=== PATIENT | female | born 1965 | race Caucasian/White ===

== ENCOUNTER 2017-03-26 03:11 | Inpatient (IN) | payer OTHER ==
--- NOTE | 2017-03-26 03:25 | PDOC ---
History of Present Illness - General History Source: Patient, Family Exam Limitations: No Limitations - History of Present Illness Initial Comments: 03/26/17 03:35 51 y/o F with a PMHx of HTN, gastric bypass presents to the ED with epigastric pain. Patient reports associated nausea, vomiting. She ate out at a restaurant tonight and subsequently experienced symptoms. Denies fever, chills, diarrhea. Denies chest pain, SOB. <Fatmata Pena - Last Filed: 03/26/17 03:35> <Floyd Real - Last Filed: 03/26/17 07:15> - General Stated Complaint: VOMITING, ABDOMINAL PAIN Time Seen by Provider: 03/26/17 03:24 Past History <Fatmata Pena - Last Filed: 03/26/17 03:35> <Floyd Real - Last Filed: 03/26/17 07:15> - Past Medical History Allergies/Adverse Reactions: Allergies Allergy/AdvReac Type Severity Reaction Status Date / Time No Known Allergies Allergy Verified 03/26/17 04:22 Home Medications: Ambulatory Orders Valsartan 40 mg PO DAILY 03/26/17 Review of Systems - Review of Systems Comments:: 03/26/17 03:36 GENERAL/CONSTITUTIONAL: No fever or chills. No weakness. HEAD, EYES, EARS, NOSE AND THROAT: No change in vision. No ear pain or discharge. No sore throat. CARDIOVASCULAR: No chest pain or shortness of breath. RESPIRATORY: No cough, wheezing, or hemoptysis. GASTROINTESTINAL: (+) epigastric tenderness, nausea, vomiting. No diarrhea or constipation. GENITOURINARY: No dysuria, frequency, or change in urination. MUSCULOSKELETAL: No joint or muscle swelling or pain. No neck or back pain. SKIN: No rash NEUROLOGIC: No headache, vertigo, loss of consciousness, or change in strength/ sensation. ENDOCRINE: No increased thirst. No abnormal weight change. HEMATOLOGIC/LYMPHATIC: No anemia, easy bleeding, or history of blood clots. ALLERGIC/IMMUNOLOGIC: No hives or skin allergy. <Fatmata Pena - Last Filed: 03/26/17 03:35> *Physical Exam - Physical Exam Comments: 03/26/17 03:37 GENERAL: Awake, alert, and fully oriented, in no acute distress HEAD: No signs of trauma EYES: PERRLA, EOMI, sclera anicteric, conjunctiva clear ENT: Auricles normal inspection, hearing grossly normal, nares patent, oropharynx clear without exudates. Moist mucosa NECK: Normal ROM, supple, no lymphadenopathy, JVD, or masses LUNGS: Breath sounds equal, clear to auscultation bilaterally. No wheezes, and no crackles HEART: Regular rate and rhythm, normal S1 and S2, no murmurs, rubs or gallops ABDOMEN: Epigastric tenderness. Soft, normoactive bowel sounds. No guarding, no rebound. No masses EXTREMITIES: Normal range of motion, no edema. No clubbing or cyanosis. No cords, erythema, or tenderness NEUROLOGICAL: Cranial nerves II through XII grossly intact. Normal speech, normal gait SKIN: Warm, Dry, normal turgor, no rashes or lesions noted. <Fatmata Pena - Last Filed: 03/26/17 03:35> ED Treatment Course - LABORATORY CBC & Chemistry Diagram: 03/26/17 04:47 03/26/17 04:47 <Floyd Real - Last Filed: 03/26/17 07:15> *DC/Admit/Observation/Transfer - Attestations Scribe Attestion: 03/26/17 03:37 Documentation prepared by Fatmata Pena, acting as associate medical director for lFoyd Real DO. <Fatmata Pena - Last Filed: 03/26/17 03:35> - Attestations Physician Attestion: 03/26/17 03:24 I, Dr. Floyd Real, attest that this document has been prepared under my direction and personally reviewed by me in its entirety. I further attest, that it accurately reflects all work, treatment, procedures and medical decision -making performed by me. <Floyd Real - Last Filed: 03/26/17 07:15> Diagnosis at time of Disposition: Pancreatitis Qualifiers: Chronicity: acute Pancreatitis type: other Acute pancreatitis complication: unspecified Qualified Code(s): K85.80 - Other acute pancreatitis without necrosis or infection; K85.80 - Other acute pancreatitis without necrosis or infection
[2017-03-26] MEDS ORDERED: SODIUM CHLORIDE 1,000 ML IV STA (03:34)
[2017-03-26] MEDS ORDERED: ONDANSETRON 4 MG/2 ML VIAL IVPUSH ONE (03:34)
[2017-03-26] MEDS ORDERED: HYDROmorphone HCL CARPU-JECT 1 MG/1 ML DISP.SYRIN IVPUSH ONE (03:34)
[2017-03-26 05:01] LABS: BASOPHIL 0.5 % (0-2.0); EOSINOPHIL 0.2 % (0-4.5); MCH 24.2 pg (25.7-33.7); MEAN CELL VOLUME 75.4 fl (80-96); MEAN PLT VOLUME 7.3 fl (7.5-11.1); NEUTROPHILS 87.8 % (42.8-82.8); PLATELET COUNT 352 K/MM3 (134-434); RDW 18.8 % (11.6-15.6); WHITE BLOOD COUNT 15.6 K/mm3 (4.0-10.0)
[2017-03-26 05:09] LABS: INR 1.04 (0.82-1.09); PROTHROMBIN TIME (PATIENT) 11.8 SEC (9.98-11.88)
[2017-03-26 05:20] LABS: ALBUMIN 3.6 g/dl (3.4-5.0); ANION GAP 7 (8-16); BILIRUBIN,TOTAL 0.9 mg/dL (0.2-1.0); CALCIUM 8.7 mg/dL (8.5-10.1); CO2 27 mmol/L (21-32); CREATININE 0.9 mg/dL (0.55-1.02); GLUCOSE,RANDOM 163 mg/dL (74-106); SGOT/AST 225 U/L (15-37); SGPT/ALT 77 U/L (12-78); TOT PROT 7.4 g/dl (6.4-8.2)
[2017-03-26 05:23] LABS: ALK PHOS 190 U/L (45-117); CPK 110 IU/L (26-192); TROPONIN I < 0.02 ng/ml (0.00-0.05)
[2017-03-26] MEDS ORDERED: ACETAMINOPHEN 1000 MG/100 ML VIAL (NON FORMULARY) IVPB ONE (06:38)
[2017-03-26] MEDS ORDERED: ACETAMINOPHEN INJECTION 100 ML IVPB ONE (07:01)
[2017-03-26] MEDS ORDERED: PIPERACIL/TAZOB 3.375 GM 3.375 GM/50 ML PREMIX IVPB ONE (07:25)
[2017-03-26] MEDS ORDERED: METRONIDAZOLE 500 MG PREMIXED 100 ML IVPB ONE ×2 (07:25→08:01)
[2017-03-26 08:01] LABS: URINE APPEARANCE CLEAR; URINE BILIRUBIN NEGATIVE (NEGATIVE); URINE BLOOD NEGATIVE (NEGATIVE); URINE COLOR YELLOW; URINE GLUCOSE (UA) 1+ (NEGATIVE); URINE KETONE NEGATIVE (NEGATIVE); URINE NITRITE NEGATIVE (NEGATIVE); URINE PROTEIN NEGATIVE (NEGATIVE)
[2017-03-26] MEDS ORDERED: PIPERACILLIN/TAZOB 3.375 GM 50 ML IVPB ONE (08:01)
[2017-03-26] MEDS ORDERED: morphine CARPU-JECT 2 MG/1 ML DISP.SYRIN IVPUSH PRN (09:42)
[2017-03-26] MEDS ORDERED: SODIUM CHLORIDE 1,000 ML IV SCH (09:45)
--- NOTE | 2017-03-26 10:14 | PDOC ---
*Physical Exam - Vital Signs Last Vital Signs Temp Pulse Resp BP Pulse Ox 100.8 F H 95 H 20 132/75 98 03/26/17 06:36 03/26/17 07:17 03/26/17 07:17 03/26/17 07:17 03/26/17 07:17 ED Treatment Course - LABORATORY CBC & Chemistry Diagram: 03/26/17 04:47 03/26/17 04:47 - ADDITIONAL ORDERS Additional order review: Laboratory Results 03/26/17 03/26/17 03/26/17 07:51 04:47 04:47 PT with INR 11.80 INR 1.04 Sodium 141 Potassium 4.5 Chloride 107 Carbon Dioxide 27 Anion Gap 7 L BUN 14 Creatinine 0.9 Creat Clearance w eGFR > 60 Random Glucose 163 H Calcium 8.7 Total Bilirubin 0.9 AST 225 H ALT 77 Alkaline Phosphatase 190 H Creatine Kinase 110 Troponin I < 0.02 Total Protein 7.4 Albumin 3.6 Lipase 807 H Urine Color Yellow Urine Appearance Clear Urine pH 6.0 Urine Protein Negative Urine Glucose (UA) 1+ H Urine Ketones Negative Urine Blood Negative Urine Nitrite Negative Urine Bilirubin Negative Urine Urobilinogen 2.0 H 03/26/17 04:47 RBC 4.86 MCV 75.4 L MCHC 32.0 RDW 18.8 H MPV 7.3 L Neutrophils % 87.8 H Lymphocytes % 3.5 L Monocytes % 8.0 Eosinophils % 0.2 Basophils % 0.5 - RADIOLOGY Radiology Studies Ordered: Category Date Time Status ABDOMEN US -LIMITED [US] Stat Ultrasound 03/26/17 07:44 Completed - Medications Given in the ED: ED Medications Discontinued Medications Generic Name Dose Route Start Last Admin Trade Name Minerva PRN Reason Stop Dose Admin Acetaminophen 1,000 mg 03/26/17 06:38 03/26/17 07:04 Ofirmev Injection - IVPB 03/26/17 06:39 1,000 mg ONCE ONE Administration Hydromorphone HCl 1 mg 03/26/17 03:34 03/26/17 04:14 Dilaudid Injection - IVPUSH 03/26/17 03:35 1 mg ONCE ONE Administration Sodium Chloride 1,000 mls @ 1,000 mls/hr 03/26/17 03:34 03/26/17 04:14 Normal Saline - IV 03/26/17 04:33 1,000 mls/hr ASDIR STA Administration Metronidazole 100 mls @ 100 mls/hr 03/26/17 07:25 03/26/17 08:25 Flagyl 500mg Premixed Ivpb - IVPB 03/26/17 08:24 100 mls/hr ONCE ONE Administration Ondansetron HCl 4 mg 03/26/17 03:34 03/26/17 04:14 Zofran Injection IVPUSH 03/26/17 03:35 4 mg ONCE ONE Administration Piperacillin/Tazobactam/Dextrose 3.375 gm 03/26/17 07:25 03/26/17 09:25 Zosyn 3.375gm Ivpb (Premix) IVPB 03/26/17 07:26 3.375 gm ONCE ONE Administration Medical Decision Making - Medical Decision Making 03/26/17 10:04 51 F with acute pancreatitis. CTAP with no acute pathology. RUQ US shows no evidence of cholecystitis, with noted small cholesterol granules (less likely stones). Gallstone pancreatitis is unlikely as pt with no elevation in bilis, but will continue to trend bilis along with lipase. Pt with fever but no biliary dilation, no definite stones on US to suggest cholangitis. Pt was empirically covered with flagyl and zosyn. Will need GI consult for complete evaluation for potential cholangitis. - Admit to hospitalist for evaluation and management of pancreatitis as well as GI consultation Case discussed in detail with admitting physician including history, physical exam and ancillary studies. Admitting physician has assumed care for the patient and will follow all pending diagnostics and complete the evaluation and treatment. *DC/Admit/Observation/Transfer Diagnosis at time of Disposition: Pancreatitis Qualifiers: Chronicity: acute Pancreatitis type: other Acute pancreatitis complication: unspecified Qualified Code(s): K85.80 - Other acute pancreatitis without necrosis or infection - Discharge Dispostion Admit: Yes - Referrals - Patient Instructions - Post Discharge Activity - Attestations Physician Attestion: 03/26/17 10:14 I, Dr. Shiva Payan MD, attest that this document has been prepared under my direction and personally reviewed by me in its entirety. I further attest, that it accurately reflects all work, treatment, procedures and medical decision -making performed by me.
[2017-03-26 11:40] LABS: URINE LEUK ESTERASE Negative (NEGATIVE)
--- NOTE | 2017-03-26 12:07 | HP ---
CHIEF COMPLAINT:abdominal pain PCP: HISTORY OF PRESENT ILLNESS: 51 yo F with PMhx of HTN and s/p gastric bypass presents with few hour history of abdominal pain. She states the pain started last night after eating chicken. She describes constant non-radiating 10/10 epigastric pain. No alleviating factors but aggravated by food. She vomited non-bloody, non billous vomit x1. No similar pain in past. Denies CP,BOOGIE, SOB, palpitations, fevers, or chills. ER course was notable for: (1)WBC- 15.1, tachycardic 95 and fever 100.8= sirs (2)Given zosyn and metronidazole x1 (3)Gallbladder US shows small stones. Recent Travel: Denies PAST MEDICAL HISTORY: HTN PAST SURGICAL HISTORY: gastric bypass 2012 , and x3 Social History: Smoking:Markka daily Alcohol:2-3 drinks 5 days/week Drugs: denies Family History: Allergies No Known Allergies Allergy (Verified 03/26/17 04:22) HOME MEDICATIONS: Home Medications Medication Instructions Recorded Valsartan 40 mg PO DAILY 03/26/17 REVIEW OF SYSTEMS CONSTITUTIONAL: Absent: fever, chills, diaphoresis, generalized weakness, malaise, loss of appetite, weight change HEENT: Absent: rhinorrhea, nasal congestion, throat pain, throat swelling, difficulty swallowing, mouth swelling, ear pain, eye pain, visual changes CARDIOVASCULAR: Absent: chest pain, syncope, palpitations, irregular heart rate, lightheadedness , peripheral edema RESPIRATORY: Absent: cough, shortness of breath, dyspnea with exertion, orthopnea, wheezing, stridor, hemoptysis GASTROINTESTINAL:abdominal pain, abdominal distension, nausea, vomiting Absent: , diarrhea, constipation, melena, hematochezia GENITOURINARY: Absent: dysuria, frequency, urgency, hesitancy, hematuria, flank pain, genital pain MUSCULOSKELETAL: Absent: myalgia, arthralgia, joint swelling, back pain, neck pain SKIN: Absent: rash, itching, pallor HEMATOLOGIC/IMMUNOLOGIC: Absent: easy bleeding, easy bruising, lymphadenopathy, frequent infections ENDOCRINE: Absent: unexplained weight gain, unexplained weight loss, heat intolerance, cold intolerance NEUROLOGIC: Absent: headache, focal weakness or paresthesias, dizziness, unsteady gait, seizure, mental status changes, bladder or bowel incontinence PSYCHIATRIC: Absent: anxiety, depression, suicidal or homicidal ideation, hallucinations. PHYSICAL EXAMINATION Vital Signs - 24 hr 03/26/17 11:38 Temperature 98.3 F Pulse Rate [ 79 Right Apical] Blood Pressure 119/56 [Right Arm] O2 Sat by Pulse 95 Oximetry (%) GENERAL: AAOx3 , mild distress HEAD: NC/AT EYES: PERRLA, EOMI, sclera anicteric, conjunctiva clear. No lid lag. EARS, NOSE, THROAT: Moist mucous membranes. NECK:supple without lymphadenopathy, JVD, or masses. LUNGS: CTAB. No wheezes, and no crackles. No accessory muscle use. HEART: RRR, normal S1 and S2 , no M/G/R ABDOMEN: Soft, epigastric tenderness, negative szymanski sign , not distended, normoactive bowel sounds, voluntary guarding, no rebound, no masses. MUSCULOSKELETAL: Normal range of motion at all joints. No bony deformities or tenderness. No CVA tenderness. UPPER EXTREMITIES: 2+ pulses, warm, well-perfused. No cyanosis. No clubbing. No peripheral edema. LOWER EXTREMITIES: 2+ pulses, warm, well-perfused. No calf tenderness. No peripheral edema. NEUROLOGICAL: Cranial nerves II-XII intact. Normal speech. PSYCHIATRIC: Cooperative. Good eye contact. Appropriate mood and affect. SKIN: Warm, dry, normal turgor, no rashes or lesions noted, normal capillary refill. Laboratory Tests 03/26/17 03/26/17 03/26/17 04:47 04:47 04:47 WBC 15.6 H RBC 4.86 Hgb 11.8 Hct 36.7 MCV 75.4 L MCH 24.2 L MCHC 32.0 RDW 18.8 H Plt Count 352 MPV 7.3 L Neutrophils % 87.8 H Lymphocytes % 3.5 L Monocytes % 8.0 Eosinophils % 0.2 Basophils % 0.5 PT with INR 11.80 INR 1.04 Sodium 141 Potassium 4.5 Chloride 107 Carbon Dioxide 27 Anion Gap 7 L BUN 14 Creatinine 0.9 Creat Clearance w eGFR > 60 Random Glucose 163 H Calcium 8.7 Total Bilirubin 0.9 AST 225 H ALT 77 Alkaline Phosphatase 190 H Creatine Kinase 110 Troponin I < 0.02 Total Protein 7.4 Albumin 3.6 Triglycerides Lipase 807 H Urine Color Urine Appearance Urine pH Ur Specific Mon[place] Urine Protein Urine Glucose (UA) Urine Ketones Urine Blood Urine Nitrite Urine Bilirubin Urine Urobilinogen Ur Leukocyte Esterase 03/26/17 03/26/17 07:51 10:30 WBC RBC Hgb Hct MCV MCH MCHC RDW Plt Count MPV Neutrophils % Lymphocytes % Monocytes % Eosinophils % Basophils % PT with INR INR Sodium Potassium Chloride Carbon Dioxide Anion Gap BUN Creatinine Creat Clearance w eGFR Random Glucose Calcium Total Bilirubin AST ALT Alkaline Phosphatase Creatine Kinase Troponin I Total Protein Albumin Triglycerides 64 Lipase Urine Color Yellow Urine Appearance Clear Urine pH 6.0 Ur Specific Mon[place] 1.015 Urine Protein Negative Urine Glucose (UA) 1+ H Urine Ketones Negative Urine Blood Negative Urine Nitrite Negative Urine Bilirubin Negative Urine Urobilinogen 2.0 H Ur Leukocyte Esterase Negative IMAGING: * CT/ABDOMEN PELVIS CT W/O CONTR [id number] CT/CHEST CT WITHOUT CONTRAST Epigastric and chest pain. Status post gastric bypass. CT scan of the chest, abdomen and pelvis without oral and intravenous contrast. No prior is available for comparison. Included lower neck appears unremarkable. The heart is within normal limits in size with a trace of pericardial effusion. No enlarged lymph nodes are identified. A right-sided aortic arch is present. The ascending ascending aorta, arch and descending thoracic aorta measures approximately 3, 3 and 3 cm in diameter, respectively. However, visualization of the aorta is limited due to lack of intravenous contrast administration. Evaluation of the lung is clear. No pneumothorax or pleural effusion are identified. In the abdomen pelvis, status post gastric surgery is identified with multiple surgical sutures is seen. The liver, spleen, pancreas and both adrenal glands and both kidneys appear unremarkable. There is no evidence of hydroureteronephrosis, renal or ureteral stone, bilaterally. Partially distended urinary bladder without gross wall thickening. Gallbladder is adequately distended with layering of tiny echogenic density suggestive of sludge versus tiny stones without wall thickening or pericholecystic free fluid. There is no evidence of small bowel obstruction. Normal-appearing terminal ileum and appendix. Normal stool burden in the colon with possible few diverticula in the sigmoid colon without evidence of acute diverticulitis. No free fluid, free air or enlarged lymph nodes are identified. Normal size uterus. Minimal free fluid in the right adnexa and cul-de-sac which is nonspecific. Visualized osseous structures appear intact Impression: Right- sided aortic arch and descending thoracic aorta without gross dilatation. Normal size heart with minimal pericardial effusion. The lung is clear. Status post gastric surgery. Likely small sludge versus tiny stones layering in the gallbladder without CT evidence of acute cholecystitis. There is a trace of fluid in the right adnexa/cul-de-sac which is nonspecific. Both kidneys appear unremarkable without evidence of hydronephrosis or stones. Normal-appearing appendix A preliminary report was forwarded by the [employer] service, [employer] Reported By: Prisca Lopez MD 03/26/17 1019 * US/ABDOMEN US -LIMITED Rule out cholecystitis. Right upper abdomen ultrasound. The liver is within normal limits in size and echotexture. Gallbladder is adequately distended with a few tiny mobile/floating echogenic densities the largest measuring 5 mm suggestive of cholesterol granulomas versus stones. Borderline thickening of the gallbladder wall measuring 3 mm without evidence of pericholecystic free fluid. Environmental Adviser reported negative Szymanski's sign. No intra or extrahepatic bile duct dilatation is seen. The right kidney measures 8.7 cm sagittal length and appears unremarkable. Visualized portion of the pancreas appears unremarkable Visualized portion of the proximal abdominal aorta and inferior vena cava appear unremarkable. Normal flow in the main portal vein. IMPRESSION: Likely cholesterol granules versus tiny floating mobile stones with borderline thickening of the gallbladder wall and without evidence of pericholecystic free fluid to suggest acute cholecystitis. Correlate clinically for further evaluation. Reported By: Prisca Lopez MD [id number] ASSESSMENT/PLAN: 51 yo F with PMhx of HTN and s/p gastric bypass presents with few hour history of abdominal pain admitted for acute pancreatitis most likely 2/2 gallstones. Problem List - Problem (1) Pancreatitis Assessment/Plan: * Most likely 2/2 gallstones. * NPO * Pain control with morphine 2mg Q4h * IVF with NS @150ml/hr * Surgery consult - Dr. Staton for possible CCY. * Repeat CBC, CMP in AM * triglycerides 64 (2) SIRS (systemic inflammatory response syndrome) Assessment/Plan: * Most likely 2/2 acute pancreatitis * Urine and blood cultures sent * UA WNL * CXR shows no acute pathology. (3) HTN (hypertension) Assessment/Plan: * Will hold bp meds for now * IV [id number] PRN (4) DVT prophylaxis Assessment/Plan: * Heparin 5000U SQ TID Visit type - Emergency Visit Emergency Visit: Yes ED Registration Date: 03/26/17 Care time: The patient presented to the Emergency Department on the above date and was hospitalized for further evaluation of their emergent condition. - New Patient This patient is new to me today: Yes Date on this admission: 03/26/17 - Critical Care Critical Care patient: No
[2017-03-26 12:45] VITALS: BMI 30.6
[2017-03-26] MEDS ORDERED: FLU VACCINE QUAD 60 MCG/0.5 ML (MDV 17-18) IM ONE (13:30)
--- NOTE | 2017-03-26 13:30 | CONSULT ---
- Consultation REQUESTING PROVIDER: Jeniffer MISHRA CONSULT REQUEST: We have been asked to surgically evaluate this patient for ( specify). PCP:Garett Swift MD HISTORY OF PRESENT ILLNESS: CTSP who is a51 y/o female who presented w / sudden onset of n/v/epigastric pain after eating and having 2 shots of tequila ; she has a h/o a lap GBP 4 years ago; she has never had a problem related to her GBP and has lost over 100 lbs; she has also had an abdominoplasty in the past; she states she feels better since admission and wants to eat and/or drink. She denies dark urine/light stools and to the best of her knowledge did not have gallstones pre LGBP. PMHx: hypertension PSHx: as above Home Medications Medication Instructions Recorded Valsartan 40 mg PO DAILY 03/26/17 Allergies Allergy/AdvReac Type Severity Reaction Status Date / Time No Known Allergies Allergy Verified 03/26/17 04:22 PHYSICAL EXAM: GENERAL: Awake, alert, and fully oriented, in no acute distress. HEAD: Normal with no signs of trauma. EYES: Sclera anicteric, conjunctiva clear. NECK: Normal ROM, supple without lymphadenopathy, JVD, or masses. ABDOMEN: Soft, nontender, not distended, normoactive bowel sounds, no guarding, no rebound, no masses. No organomegaly. Healed port sites ; no hernias; healed abdominoplasty scars. MUSCULOSKELETAL: Normal ROM at all joints. No bony deformities or tenderness. No CVA tenderness. UPPER EXTREMITIES: 2+ pulses, warm, well-perfused. No cyanosis. Cap refill <2 seconds. No peripheral edema. LOWER EXTREMITIES: 2+ pulses, warm, well-perfused. No calf tenderness. No peripheral edema. NEUROLOGICAL: Normal speech, gait not observed. PSYCH: Cooperative. Good eye contact. Appropriate mood and affect. SKIN: Warm, dry, normal turgor, no rashes or lesions noted. Vital Signs Temperature 98.3 F 03/26/17 11:38 Pulse Rate 79 03/26/17 11:38 Respiratory Rate 20 03/26/17 10:14 Blood Pressure 119/56 03/26/17 11:38 O2 Sat by Pulse Oximetry (%) 95 03/26/17 11:38 Lab Results WBC 15.6 K/mm3 (4.0-10.0) H 03/26/17 04:47 RBC 4.86 M/mm3 (3.60-5.2) 03/26/17 04:47 Hgb 11.8 GM/dL (10.7-15.3) 03/26/17 04:47 Hct 36.7 % (32.4-45.2) 03/26/17 04:47 MCV 75.4 fl (80-96) L 03/26/17 04:47 MCHC 32.0 g/dl (32.0-36.0) 03/26/17 04:47 RDW 18.8 % (11.6-15.6) H 03/26/17 04:47 Plt Count 352 K/MM3 (134-434) 03/26/17 04:47 Sodium 141 mmol/L (136-145) 03/26/17 04:47 Potassium 4.5 mmol/L (3.5-5.1) 03/26/17 04:47 Chloride 107 mmol/L (98-107) 03/26/17 04:47 Carbon Dioxide 27 mmol/L (21-32) 03/26/17 04:47 Anion Gap 7 (8-16) L 03/26/17 04:47 BUN 14 mg/dL (7-18) 03/26/17 04:47 Creatinine 0.9 mg/dL (0.55-1.02) 03/26/17 04:47 Random Glucose 163 mg/dL (74-106) H 03/26/17 04:47 Calcium 8.7 mg/dL (8.5-10.1) 03/26/17 04:47 INR 1.04 (0.82-1.09) 03/26/17 04:47 CT a/p and US and labs reviewed. IMP: pancreatitis of ?? origin PLAN:NPO/IVF?trend LFT's and bili; may have post LGBP marginal ulcer; would also recommend routine GI evaluation for EGD; imaging findings w/r/t the gallbladder are very soft. Shiva Staton MD FACS Visit type - Case Type Case Type: ED Admission - Emergency Emergency Visit: Yes ED Registration Date: 03/26/17 Care time: The patient presented to the Emergency Department on the above date and was hospitalized for further evaluation of their emergent condition. - New patient This patient is new to me today: Yes Date on this admission: 03/26/17 - Critical Care Critical Care patient: No
[2017-03-26] MEDS ORDERED: morphine CARPU-JECT 8 MG/1 ML DISP.SYRIN IVPUSH PRN (14:18)
--- NOTE | 2017-03-26 14:21 | PN ---
Teaching Attending Note Name of Resident: Bry Moses ATTENDING PHYSICIAN STATEMENT I saw and evaluated the patient. I reviewed the resident's note and discussed the case with the resident. I agree with the resident's findings and plan as documented. SUBJECTIVE: Patient seen and examined. Abdominal pain improved, hungry, asking to eat. Reports chills, feels might have fever, no new complaints. No current nausea, vomitting noted. OBJECTIVE: Vital Signs Period Temp Pulse Resp BP Sys/Rockwell Pulse Ox Last 24 Hr 98.3 F-100.8 F 73-95 20-20 119-153/56-84 95-100 Intake & Output 03/23/17 03/24/17 03/25/17 03/26/17 23:59 23:59 23:59 23:59 Weight 162 lb General: lying in bed in no acute distress, able to speak in full sentences, HEENT PERRLA, EOMI, normocephalic, atraumatic Neck soft, supple, no JVD visualized CVS S1S2 RRR Chest CTAB, no rales or wheezing Abdomen - soft, Non distended, no epigastric tenderness currently (reports had earlier), mild RUQ tenderness on deep palpation, no voluntary or involuntary guarding or rigidity, positive bowel sounds Extremities - no edema, pulses present bilaterally Neuro AAOX3, power 5/5 Current Medications Heparin Sodium (Porcine) (Heparin -) 5,000 unit SQ Q8H-IV TANESHA Sodium Chloride (Normal Saline -) 1,000 mls @ 150 mls/hr IV ASDIR TANESHA Morphine Sulfate (Morphine Sulfate) 1 mg IVPUSH Q4H PRN PRN Reason: PAIN Ondansetron HCl (Zofran Injection) 4 mg IVPUSH Q6H PRN PRN Reason: NAUSEA Laboratory Results - last 24 hr 03/26/17 03/26/17 03/26/17 04:47 04:47 04:47 WBC 15.6 H RBC 4.86 Hgb 11.8 Hct 36.7 MCV 75.4 L MCH 24.2 L MCHC 32.0 RDW 18.8 H Plt Count 352 MPV 7.3 L Neutrophils % 87.8 H Lymphocytes % 3.5 L Monocytes % 8.0 Eosinophils % 0.2 Basophils % 0.5 PT with INR 11.80 INR 1.04 Sodium 141 Potassium 4.5 Chloride 107 Carbon Dioxide 27 Anion Gap 7 L BUN 14 Creatinine 0.9 Creat Clearance w eGFR > 60 Random Glucose 163 H Calcium 8.7 Total Bilirubin 0.9 AST 225 H ALT 77 Alkaline Phosphatase 190 H Creatine Kinase 110 Troponin I < 0.02 Total Protein 7.4 Albumin 3.6 Triglycerides Lipase 807 H Urine Color Urine Appearance Urine pH Ur Specific [place] Urine Protein Urine Glucose (UA) Urine Ketones Urine Blood Urine Nitrite Urine Bilirubin Urine Urobilinogen Ur Leukocyte Esterase 03/26/17 03/26/17 07:51 10:30 WBC RBC Hgb Hct MCV MCH MCHC RDW Plt Count MPV Neutrophils % Lymphocytes % Monocytes % Eosinophils % Basophils % PT with INR INR Sodium Potassium Chloride Carbon Dioxide Anion Gap BUN Creatinine Creat Clearance w eGFR Random Glucose Calcium Total Bilirubin AST ALT Alkaline Phosphatase Creatine Kinase Troponin I Total Protein Albumin Triglycerides 64 Lipase Urine Color Yellow Urine Appearance Clear Urine pH 6.0 Ur Specific [place] 1.015 Urine Protein Negative Urine Glucose (UA) 1+ H Urine Ketones Negative Urine Blood Negative Urine Nitrite Negative Urine Bilirubin Negative Urine Urobilinogen 2.0 H Ur Leukocyte Esterase Negative CT chest and A/P results reviewed Liver ultrasound results reviewed CXR results noted ASSESSMENT AND PLAN: 51 yof with PMHx of HTN, gastric bypass admitted with abdominal pain, elevated lipase, abnormal Liver ultrasound and ?ETOH history. -Acute pancreatitis with SIRS, ?alcohol related vs gall stone, TG 64 -Abnormal LFTs, ?passed stone -HTN -s/p gastric bypass PLan: NPO, IVF, pain control with morphine, supportive treatment with zofran. Hold off on antibiotics for now, serial abdominal exams, monitor clinically. Surgery consult with Dr. Staton appreciated, conservative management for now GI input if fails to improve. Add protonix IV. ?ETOH history. Check toxicology screen. DVTPPx with heparin Anticipate atleast 2 midnight stays given NPO, need for IV hydration and close monitoring of new infectious process. Plan discussed with patient. Total admit time 50 min.
[2017-03-26] MEDS: PANTOPRAZOLE SODIUM 40 MG VIAL IVPUSH SCH (15:23)
[2017-03-26] MEDS: HEPARIN NA (PORCINE) 5,000 UNITS/ML 1ML VIAL SQ SCH ×2 (17:24→17:42)
[2017-03-26] MEDS: SODIUM CHLORIDE 1,000 ML IV SCH (17:24)
[2017-03-26] MEDS: ACETAMINOPHEN 325 MG TABLET (FP) PO PRN (20:06)
[2017-03-27] MEDS: HEPARIN NA (PORCINE) 5,000 UNITS/ML 1ML VIAL SQ SCH ×3 (02:50→17:22)
[2017-03-27] MEDS: SODIUM CHLORIDE 1,000 ML IV SCH ×2 (06:36→17:21)
[2017-03-27 08:17] LABS: BASOPHIL 0.4 % (0-2.0); EOSINOPHIL 0.3 % (0-4.5); MCH 24.4 pg (25.7-33.7); MCHC 32.4 g/dl (32.0-36.0); MEAN CELL VOLUME 75.3 fl (80-96); MEAN PLT VOLUME 7.4 fl (7.5-11.1); NEUTROPHILS 90.4 % (42.8-82.8); PLATELET COUNT 283 K/MM3 (134-434); RDW 18.9 % (11.6-15.6); WHITE BLOOD COUNT 10.8 K/mm3 (4.0-10.0)
[2017-03-27] MEDS: morphine CARPU-JECT 8 MG/1 ML DISP.SYRIN IVPUSH PRN ×2 (08:33→19:22)
[2017-03-27 09:03] LABS: ALBUMIN 2.6 g/dl (3.4-5.0); ANION GAP 7 (8-16); CALCIUM 7.9 mg/dL (8.5-10.1); CO2 24 mmol/L (21-32); GLUCOSE,RANDOM 112 mg/dL (74-106); PHOSPHOROUS 2.2 mg/dL (2.5-4.9); SGOT/AST 263 U/L (15-37)
[2017-03-27 09:05] LABS: ALK PHOS 187 U/L (45-117); BILIRUBIN,TOTAL 3.5 mg/dL (0.2-1.0); CREATININE 0.7 mg/dL (0.55-1.02); SGPT/ALT 300 U/L (12-78); TOT PROT 5.4 g/dl (6.4-8.2)
[2017-03-27] MEDS: PANTOPRAZOLE SODIUM 40 MG VIAL IVPUSH SCH (09:21)
--- NOTE | 2017-03-27 12:19 | PN ---
Progress Note (short form) - Note Progress Note: Attending Surgeon Seen in f/u Some c/o pain VSS AF
[2017-03-27] MEDS: ACETAMINOPHEN 325 MG TABLET (FP) PO PRN (12:28)
--- NOTE | 2017-03-27 15:09 | PN ---
Teaching Attending Note Name of Resident: Garett Swift ATTENDING PHYSICIAN STATEMENT SUBJECTIVE: Patient seen and examined. abdominal pain improved, feels hungry, asking to eat , no new complaints. OBJECTIVE: Vital Signs Period Temp Pulse Resp BP Sys/Rockwell Pulse Ox Last 24 Hr 98.7 F-99.6 F 73-81 20-20 131-171/72-98 95 Intake & Output 03/24/17 03/25/17 03/26/17 03/27/17 23:59 23:59 23:59 23:59 Intake Total 1200 Balance 1200 Weight 162 lb GEneral: lying in bed in no acute distress CVS S1S2 regular Chest CTAB, no rales or wheezing Abdomen soft, mild epigastric tenderness today, no RUQ Tenderness today, neg Szymanski's sign, ND, positive bowel sounds, no CVA tenderness, no voluntary or involuntary guarding or rigidity present Extremities no edema Current Medications Acetaminophen (Tylenol -) 650 mg PO Q6H PRN PRN Reason: FEVER OR PAIN Last Admin: 03/27/17 12:28 Dose: 650 mg Heparin Sodium (Porcine) (Heparin -) 5,000 unit SQ Q8H-IV TANESHA Last Admin: 03/27/17 09:21 Dose: 5,000 unit Sodium Chloride (Normal Saline -) 1,000 mls @ 150 mls/hr IV ASDIR TANESHA Last Admin: 03/27/17 06:36 Dose: 150 mls/hr Morphine Sulfate (Morphine Sulfate) 1 mg IVPUSH Q6H PRN PRN Reason: PAIN Last Admin: 03/27/17 08:33 Dose: 1 mg Ondansetron HCl (Zofran Injection) 4 mg IVPUSH Q6H PRN PRN Reason: NAUSEA Pantoprazole Sodium (Protonix Iv) 40 mg IVPUSH DAILY [facility] Last Admin: 03/27/17 09:21 Dose: 40 mg Laboratory Results - last 24 hr 03/26/17 03/27/17 03/27/17 15:40 07:30 07:30 WBC 10.8 H D RBC 4.31 Hgb 10.5 L D Hct 32.4 MCV 75.3 L MCH 24.4 L MCHC 32.4 RDW 18.9 H Plt Count 283 MPV 7.4 L Neutrophils % 90.4 H Lymphocytes % 3.6 L Monocytes % 5.3 Eosinophils % 0.3 Basophils % 0.4 Sodium 143 Potassium 4.5 Chloride 112 H Carbon Dioxide 24 Anion Gap 7 L BUN 12 Creatinine 0.7 D Creat Clearance w eGFR > 60 Random Glucose 112 H D Calcium 7.9 L Phosphorus 2.2 L Magnesium 2.0 Total Bilirubin 3.5 H D GGT 458 H AST 263 H ALT 300 H D Alkaline Phosphatase 187 H Total Protein 5.4 L D Albumin 2.6 L D ASSESSMENT AND PLAN: 51 yof with PMHx of HTN, gastric bypass admitted with abdominal pain, elevated lipase, abnormal Liver ultrasound and ?ETOH history. -Acute pancreatitis with SIRS, ?alcohol related vs gall stone, TG 64 -Abnormal LFTs, worsened today -HTN -s/p gastric bypass PLan: LFTs worse today, discussed with Dr. Staton, will get MRCP. If CBD dilatation or stone concerns, not candidate for ERCP given h/o gastric bypass as discussed with him. May need laparoscopic CBD exploration and possible transfer for the same. GI consult if MRCP abnormal. NPO, IVF, pain control with morphine, supportive treatment with zofran. Hold off on antibiotics for now, serial abdominal exams, monitor clinically. Continue NPO for now given worsening LFTs. Add protonix IV. ?ETOH history. Follow up toxicology screen. DVTPPx with heparin
[2017-03-28] MEDS: HEPARIN NA (PORCINE) 5,000 UNITS/ML 1ML VIAL SQ SCH ×3 (02:36→18:58)
[2017-03-28] MEDS: SODIUM CHLORIDE 1,000 ML IV SCH (02:38)
[2017-03-28] MEDS: ACETAMINOPHEN 325 MG TABLET (FP) PO PRN ×3 (05:31→20:47)
[2017-03-28 07:19] LABS: BASOPHIL 1.1 % (0-2.0); EOSINOPHIL 0.5 % (0-4.5); MCH 24.5 pg (25.7-33.7); MCHC 32.5 g/dl (32.0-36.0); MEAN CELL VOLUME 75.2 fl (80-96); MEAN PLT VOLUME 7.4 fl (7.5-11.1); NEUTROPHILS 76.1 % (42.8-82.8); PLATELET COUNT 239 K/MM3 (134-434); RDW 18.6 % (11.6-15.6); WHITE BLOOD COUNT 6.2 K/mm3 (4.0-10.0)
[2017-03-28 07:38] LABS: ALBUMIN 2.4 g/dl (3.4-5.0); ANION GAP 7 (8-16); CALCIUM 7.7 mg/dL (8.5-10.1); CO2 23 mmol/L (21-32); GLUCOSE,RANDOM 102 mg/dL (74-106)
[2017-03-28 07:41] LABS: ALK PHOS 169 U/L (45-117); BILIRUBIN,TOTAL 1.4 mg/dL (0.2-1.0); CREATININE 0.6 mg/dL (0.55-1.02); SGOT/AST 78 U/L (15-37); SGPT/ALT 175 U/L (12-78); TOT PROT 5.5 g/dl (6.4-8.2)
[2017-03-28] MEDS ORDERED: KCL 10 MEQ IVPB 100 ML IVPB SCH (08:00)
[2017-03-28 08:23] LABS: MAGNESIUM 1.8 mg/dL (1.8-2.4); PHOSPHOROUS 1.8 mg/dL (2.5-4.9)
--- NOTE | 2017-03-28 08:38 | PN ---
Physical Exam: SUBJECTIVE: Patient seen and examined at bedside. Patient currently has less abdominal pain than she had on admission. Denies chest pain, SOB,n/v. Overnight patient had an elevated temperature of 100.1, nurse administered tylenol PRN at 5am. Patient's Tmax was 100. No other acute overnight events. OBJECTIVE: Vital Signs Period Temp Pulse Resp BP Sys/Rockwell Pulse Ox Last 24 Hr 98.3 F-100.1 F 66-81 20-20 136-171/82-98 95 GENERAL: The patient is awake, alert, and fully oriented, in no acute distress. LUNGS: Breath sounds equal, clear to auscultation bilaterally, no wheezes, no crackles, no accessory muscle use. HEART: Regular rate and rhythm, S1, S2 without murmur, rub or gallop. ABDOMEN: Soft, mild epigastric tenderness, nondistended, normoactive bowel sounds, no guarding, no rebound, no hepatosplenomegaly, no masses. NEUROLOGICAL: Cranial nerves II through XII grossly intact. Normal speech, gait not observed. PSYCH: Normal mood, normal affect. SKIN: Warm, dry, normal turgor, no rashes or lesions noted Laboratory Results - last 24 hr 03/27/17 03/28/17 03/28/17 07:30 06:30 06:30 WBC 6.2 D RBC 4.03 Hgb 9.9 L Hct 30.3 L MCV 75.2 L MCH 24.5 L MCHC 32.5 RDW 18.6 H Plt Count 239 MPV 7.4 L Neutrophils % 76.1 Lymphocytes % 12.2 D Monocytes % 10.1 D Eosinophils % 0.5 Basophils % 1.1 Sodium 143 139 Potassium 4.5 3.6 Chloride 112 H 109 H Carbon Dioxide 24 23 Anion Gap 7 L 7 L BUN 12 7 D Creatinine 0.7 D 0.6 Creat Clearance w eGFR > 60 > 60 Random Glucose 112 H D 102 Calcium 7.9 L 7.7 L Phosphorus 2.2 L 1.8 L Magnesium 2.0 1.8 Total Bilirubin 3.5 H D 1.4 H D AST 263 H 78 H D ALT 300 H D 175 H D Alkaline Phosphatase 187 H 169 H Total Protein 5.4 L D 5.5 L Albumin 2.6 L D 2.4 L Active Medications Generic Name Dose Route Start Last Admin Trade Name Freq PRN Reason Stop Dose Admin Acetaminophen 650 mg 03/26/17 19:15 03/28/17 05:31 Tylenol - PO 650 mg Q6H PRN Administration FEVER OR PAIN Heparin Sodium (Porcine) 5,000 unit 03/26/17 10:00 03/28/17 02:36 Heparin - SQ 5,000 unit Q8H-IV TANESHA Administration Lactated Ringer's 1,000 mls @ 150 mls/hr 03/28/17 08:00 Lactated Ringers Solution IV ASDIR TANESHA Potassium Chloride 10 meq/ 105 mls @ 105 mls/hr 03/28/17 09:00 Sodium Chloride IVPB 03/28/17 09:59 ONCE ONE Morphine Sulfate 1 mg 03/27/17 07:52 03/27/17 19:22 Morphine Sulfate IVPUSH 1 mg Q6H PRN Administration PAIN Ondansetron HCl 4 mg 03/26/17 09:42 Zofran Injection IVPUSH Q6H PRN NAUSEA Pantoprazole Sodium 40 mg 03/26/17 14:30 03/27/17 09:21 Protonix Iv IVPUSH 40 mg DAILY TANESHA Administration CBC, BMP 03/28/17 06:30 03/28/17 06:30 ASSESSMENT/PLAN: 51 year old female with a pmh of hypertension and gastric bypass surgery is admitted to the hospital with acute abdominal pain likely due to cholecystitis 1. Cholecystitis: MRCP revealed thickening of gallbladder wall and pericholecystic fluid suggestive of cholecystitis, Common bile duct normal -switched NS to lactated ringers this morning -Spoke to Dr. Staton, plan on cholecystectomy Tuesday -daily LFTs -ceftriaxone 2g IV QD -NPO until Tuesday -pain control with IV morphine 1mg IV Q6 -Zofran 4mg IV Q6 2. Hypertension: pressure mirna to 189/93 today -start hydralazine 10mg for BP > 160 3. Prophylaxis: -Heparin 5000 SQ TID -GI prophylaxis with 40mg IV QD FEN LR @ 150cc/hr Electrolytes within normal limits NPO due to cholecystitis Disposition Plan for surgery tuesday, DC possibly 2 days after surgery Visit type - Emergency Visit Emergency Visit: No - New Patient This patient is new to me today: No - Critical Care Critical Care patient: No
[2017-03-28 08:42] LABS: INR 1.23 (0.82-1.09); PROTHROMBIN TIME (PATIENT) 13.9 SEC (9.98-11.88)
[2017-03-28] MEDS ORDERED: POTASSIUM CHLORIDE 10 MEQ in SODIUM CHLORIDE 100 ML IVPB ONE (09:00)
[2017-03-28] MEDS ORDERED: ENALAPRILAT DIHYDRATE 1.25 MG/1 ML VIAL IVPB ONE (09:49)
--- NOTE | 2017-03-28 09:53 | PN ---
Progress Note (short form) - Note Progress Note: Attending Surgeon No c/o; wants to eat/drink VSS low grade temp 100.9 abdomen-soft/flat/nontender MRCP results pending WBC wnl LFT's trending down IMP: r/o choleldocholithiasis vs. other PLAN: Trial of clear liquids; f/u MRCP results. Shiva Staton MD FACS
[2017-03-28] MEDS: PANTOPRAZOLE SODIUM 40 MG VIAL IVPUSH SCH (10:05)
[2017-03-28] MEDS: LACTATED RINGERS SOLUTION 1,000 ML IV SCH ×2 (10:06→22:32)
[2017-03-28] MEDS: hydrALAZINE HCL 20 MG/ML VIAL IVPUSH PRN (12:24)
--- NOTE | 2017-03-28 15:46 | PN ---
Progress Note (short form) - Note Progress Note: Attending Surgeon Patient seen in f/u; MRCP reviewed; please repeat LFT's and bili for tomorrow; d /w patient lap renita possible open for 03/30/17; r/b/t/a's d/w her; she will decide tomorrow. Shiva Staton MD FACS
[2017-03-28] MEDS ORDERED: CEFTRIAXONE 2 GM in DEXTROSE 5%-WATER - 100 ML IVPB SCH (16:00)
--- NOTE | 2017-03-28 16:04 | PN ---
Teaching Attending Note Name of Resident: Darrel Ding ATTENDING PHYSICIAN STATEMENT Time of evaluation: 10:20 AM I saw and evaluated the patient. I reviewed the resident's note and discussed the case with the resident. I agree with the resident's findings and plan as documented. SUBJECTIVE: patient seen and examined. Abdominal pain resolved, no nausea, vomiting, wants to eat, no new complaints. Denies headache currently. OBJECTIVE: Vital Signs Period Temp Pulse Resp BP Sys/Rockwell Pulse Ox Last 24 Hr 98.0 F-100.1 F 62-68 20-22 136-165/82-103 95 Intake & Output 03/25/17 03/26/17 03/27/17 03/28/17 23:59 23:59 23:59 23:59 Intake Total 1200 1000 2200 Balance 1200 1000 2200 Weight 162 lb General: sitting in chair in no acute distress CVS S1S2 regular Chest CTAB, no rales or wheezing Abdomen Soft, mild epigastric tenderness, no RUQ tenderness currently, neg Szymanski's sign, no voluntary or involuntary guarding or rigidity, positive bowel sounds Extremities no edema Current Medications Acetaminophen (Tylenol -) 650 mg PO Q6H PRN PRN Reason: FEVER OR PAIN Last Admin: 03/28/17 05:31 Dose: 650 mg Heparin Sodium (Porcine) (Heparin -) 5,000 unit SQ Q8H-IV TANESHA Last Admin: 03/28/17 10:05 Dose: 5,000 unit Hydralazine HCl (Apresoline Injection -) 10 mg IVPUSH Q6H PRN PRN Reason: GIVE WHEN SBP > 150 Last Admin: 03/28/17 12:24 Dose: 10 mg Lactated Ringer's (Lactated Ringers Solution) 1,000 mls @ 150 mls/hr IV ASDIR TANESHA Last Admin: 03/28/17 10:06 Dose: 150 mls/hr Ceftriaxone Sodium 2,000 mg/ (Dextrose) 50 mls @ 100 mls/hr IVPB DAILY TANESHA Morphine Sulfate (Morphine Sulfate) 1 mg IVPUSH Q6H PRN PRN Reason: PAIN Last Admin: 03/27/17 19:22 Dose: 1 mg Ondansetron HCl (Zofran Injection) 4 mg IVPUSH Q6H PRN PRN Reason: NAUSEA Pantoprazole Sodium (Protonix Iv) 40 mg IVPUSH DAILY [facility] Last Admin: 03/28/17 10:05 Dose: 40 mg Laboratory Results - last 24 hr 03/28/17 03/28/17 03/28/17 06:30 06:30 06:30 WBC 6.2 D RBC 4.03 Hgb 9.9 L Hct 30.3 L MCV 75.2 L MCH 24.5 L MCHC 32.5 RDW 18.6 H Plt Count 239 MPV 7.4 L Neutrophils % 76.1 Lymphocytes % 12.2 D Monocytes % 10.1 D Eosinophils % 0.5 Basophils % 1.1 PT with INR INR Sodium 139 Potassium 3.6 Chloride 109 H Carbon Dioxide 23 Anion Gap 7 L BUN 7 D Creatinine 0.6 Creat Clearance w eGFR > 60 Random Glucose 102 Calcium 7.7 L Phosphorus 1.8 L Magnesium 1.8 Total Bilirubin 1.4 H D AST 78 H D ALT 175 H D Alkaline Phosphatase 169 H Total Protein 5.5 L Albumin 2.4 L Lipase 101 Cancelled 03/28/17 07:45 WBC RBC Hgb Hct MCV MCH MCHC RDW Plt Count MPV Neutrophils % Lymphocytes % Monocytes % Eosinophils % Basophils % PT with INR 13.90 H INR 1.23 H Sodium Potassium Chloride Carbon Dioxide Anion Gap BUN Creatinine Creat Clearance w eGFR Random Glucose Calcium Phosphorus Magnesium Total Bilirubin AST ALT Alkaline Phosphatase Total Protein Albumin Lipase MRI abdomen Distended gallbladder containing small amount of sludge demonstrating wall thickening and pericholecystic edema suspicious for cholecystitis. If clinically indicated HIDA scan may be obtained for further evaluation. No choledocholithiasis or pancreaticobiliary ductal dilatation seen. Unremarkable pancreas, further evaluation of which is limited due to lack of IV gadolinium. No fluid collection seen to suggest pseudocyst. No appreciable peripancreatic edema noted. Nonspecific periportal edema can be seen with pancreatitis, cholecystitis or fluid overload. Left adrenal gland hyperplasia. ASSESSMENT AND PLAN: 51 yof with PMHx of HTN, gastric bypass admitted with abdominal pain, elevated lipase, ?ETOH history, initial concerns for acute pancreatitis now with MRI abdomen suggestive of acute cholecystitis. -Acute pancreatitis with SIRS, ?alcohol related vs gall stone, TG 64 -Acute cholecystitis -Abnormal LFTs, improved today -HTN -s/p gastric bypass PLan: MRCP with acute cholecysitis, normal CBD. discussed with Dr Staton, plan for surgery on tuesday if patient agreable. Daily LFts. Start ceftriaxone 2 g IV daily. Continue NPO, IVF, pain control, anti-emetics. Place on hydralazine prn for SBP < 160 GI/DVTPPX D/c in 4-5 days if no concerns post surgery and clinically improved.
[2017-03-28] MEDS: ONDANSETRON 4 MG/2 ML VIAL IVPUSH PRN (16:07)
[2017-03-28 16:28] LABS: URINE MARIJUANA THC NEGATIVE ng/ml (CUTOFF=50)
[2017-03-29] MEDS: HEPARIN NA (PORCINE) 5,000 UNITS/ML 1ML VIAL SQ SCH ×3 (01:34→18:01)
[2017-03-29] MEDS: CEFTRIAXONE 2 GM in DEXTROSE 5%-WATER - 100 ML IVPB SCH ×2 (01:34→18:00)
[2017-03-29] MEDS: hydrALAZINE HCL 20 MG/ML VIAL IVPUSH PRN ×2 (05:03→20:50)
[2017-03-29] MEDS: ONDANSETRON 4 MG/2 ML VIAL IVPUSH PRN ×2 (06:45→22:23)
[2017-03-29] MEDS ORDERED: hydrALAZINE HCL 20 MG/ML VIAL IVPUSH ONE (06:55)
[2017-03-29 08:37] LABS: BASOPHIL 1.6 % (0-2.0); EOSINOPHIL 2.6 % (0-4.5); MCH 23.9 pg (25.7-33.7); MCHC 32.1 g/dl (32.0-36.0); MEAN CELL VOLUME 74.6 fl (80-96); MEAN PLT VOLUME 7.8 fl (7.5-11.1); NEUTROPHILS 58.9 % (42.8-82.8); PLATELET COUNT 251 K/MM3 (134-434); RDW 18.5 % (11.6-15.6); WHITE BLOOD COUNT 4.8 K/mm3 (4.0-10.0)
[2017-03-29 08:49] LABS: ALBUMIN 2.8 g/dl (3.4-5.0); ALK PHOS 203 U/L (45-117); ANION GAP 11 (8-16); BILIRUBIN,TOTAL 1.1 mg/dL (0.2-1.0); CALCIUM 8.1 mg/dL (8.5-10.1); CO2 24 mmol/L (21-32); CREATININE 0.4 mg/dL (0.55-1.02); GLUCOSE,RANDOM 119 mg/dL (74-106); SGOT/AST 43 U/L (15-37); SGPT/ALT 140 U/L (12-78); TOT PROT 6.1 g/dl (6.4-8.2)
[2017-03-29 08:58] LABS: MAGNESIUM 1.6 mg/dL (1.8-2.4); PHOSPHOROUS 2.2 mg/dL (2.5-4.9)
--- NOTE | 2017-03-29 09:51 | PN ---
Progress Note (short form) - Note Progress Note: Attending Surgeon ? c/o nausea w/clear liquids; no pain; receiving prn does of antihypertensives for elevated BP. VSS AF abdo-soft; non tender LFT's decreasing and bili as well IMP: cholecystitis PLAN: Lap renita possible open 03/30/17 if BP controlled.
[2017-03-29] MEDS ORDERED: MAGNESIUM SULF 50% (8.12 MEQ/2 ML-1 GM VIAL) IVPB ONE (10:00)
[2017-03-29] MEDS: PANTOPRAZOLE SODIUM 40 MG VIAL IVPUSH SCH (10:50)
[2017-03-29] MEDS: ACETAMINOPHEN 325 MG TABLET (FP) PO PRN ×2 (10:57→22:23)
[2017-03-29] MEDS: LACTATED RINGERS SOLUTION 1,000 ML IV SCH ×2 (10:59→22:29)
[2017-03-29] MEDS: POTASSIUM CHLORIDE 10 MEQ in SODIUM CHLORIDE 100 ML IVPB SCH ×2 (11:32→13:09)
[2017-03-29] MEDS: morphine CARPU-JECT 8 MG/1 ML DISP.SYRIN IVPUSH PRN (11:32)
[2017-03-29] MEDS: VALSARTAN 40 MG TABLET (FP) PO SCH (13:09)
--- NOTE | 2017-03-29 14:22 | PN ---
Physical Exam: SUBJECTIVE: Patient seen and examined at bedside. Patient was hypertensive overnight at 181/103 and given 2 doses of PO hydralazine that did not break her pressure. Patient was nauseous overnight and given zofran. Patient states that she currently has diffuse abdominal pain. Patient is scheduled for surgery tomorrow. OBJECTIVE: Vital Signs Period Temp Pulse Resp BP Sys/Rockwell Pulse Ox Last 24 Hr 98.6 F-98.7 F 75-86 19-19 120-192/79-103 GENERAL: The patient is awake, alert, and fully oriented, in moderate distress LUNGS: Breath sounds equal, clear to auscultation bilaterally, no wheezes, no crackles, no accessory muscle use. HEART: Regular rate and rhythm, S1, S2 without murmur, rub or gallop. ABDOMEN: Soft, mild epigastric tenderness, nondistended, normoactive bowel sounds, no guarding, no rebound, no hepatosplenomegaly, no masses. NEUROLOGICAL: Cranial nerves II through XII grossly intact. Normal speech, gait not observed. Laboratory Results - last 24 hr 03/28/17 03/29/17 03/29/17 14:35 06:10 06:10 WBC 4.8 RBC 4.59 Hgb 11.0 D Hct 34.2 MCV 74.6 L MCH 23.9 L MCHC 32.1 RDW 18.5 H Plt Count 251 MPV 7.8 Neutrophils % 58.9 D Lymphocytes % 22.1 D Monocytes % 14.8 H Eosinophils % 2.6 D Basophils % 1.6 Sodium 140 Potassium 3.6 Chloride 105 Carbon Dioxide 24 Anion Gap 11 BUN 5 L D Creatinine 0.4 L D Creat Clearance w eGFR > 60 Random Glucose 119 H Calcium 8.1 L Phosphorus 2.2 L D Magnesium 1.6 L Total Bilirubin 1.1 H D AST 43 H D ALT 140 H Alkaline Phosphatase 203 H D Total Protein 6.1 L Albumin 2.8 L Opiates Screen Negative Methadone Screen Negative Barbiturate Screen Negative Phencyclidine Screen Negative Ur Amphetamines Screen Negative MDMA (Ecstasy) Screen Negative Benzodiazepines Screen Negative Cocaine Screen Negative U Marijuana (THC) Screen Negative 03/29/17 06:10 WBC RBC Hgb Hct MCV MCH MCHC RDW Plt Count MPV Neutrophils % Lymphocytes % Monocytes % Eosinophils % Basophils % Sodium Potassium Chloride Carbon Dioxide Anion Gap BUN Creatinine Creat Clearance w eGFR Random Glucose Calcium Phosphorus Cancelled Magnesium Cancelled Total Bilirubin AST ALT Alkaline Phosphatase Total Protein Albumin Opiates Screen Methadone Screen Barbiturate Screen Phencyclidine Screen Ur Amphetamines Screen MDMA (Ecstasy) Screen Benzodiazepines Screen Cocaine Screen U Marijuana (THC) Screen Active Medications Generic Name Dose Route Start Last Admin Trade Name Freq PRN Reason Stop Dose Admin Acetaminophen 650 mg 03/26/17 19:15 03/29/17 10:57 Tylenol - PO 650 mg Q6H PRN Administration FEVER OR PAIN Heparin Sodium (Porcine) 5,000 unit 03/26/17 10:00 03/29/17 10:50 Heparin - SQ 5,000 unit Q8H-IV TANESHA Administration Hydralazine HCl 10 mg 03/28/17 09:56 03/29/17 05:03 Apresoline Injection - IVPUSH 10 mg Q6H PRN Administration GIVE WHEN SBP > 150 Ceftriaxone Sodium 2 gm/ 100 mls @ 200 mls/hr 03/29/17 01:30 03/29/17 01:34 Dextrose IVPB 200 mls/hr DAILY TANESHA Administration Lactated Ringer's 1,000 mls @ 75 mls/hr 03/29/17 07:32 03/29/17 10:59 Lactated Ringers Solution IV 75 mls/hr ASDIR TANESHA Administration Morphine Sulfate 1 mg 03/27/17 07:52 03/29/17 11:32 Morphine Sulfate IVPUSH 1 mg Q6H PRN Administration PAIN Ondansetron HCl 4 mg 03/26/17 09:42 03/29/17 06:45 Zofran Injection IVPUSH 4 mg Q6H PRN Administration NAUSEA Pantoprazole Sodium 40 mg 03/26/17 14:30 03/29/17 10:50 Protonix Iv IVPUSH 40 mg DAILY TANESHA Administration Valsartan 40 mg 03/29/17 12:45 03/29/17 13:09 Diovan - PO 40 mg DAILY TANESHA Administration ASSESSMENT/PLAN: 51 year old female with a pmh of hypertension and gastric bypass surgery is admitted to the hospital with acute abdominal pain likely due to cholecystitis. 1. Cholecystitis: MRCP revealed thickening of gallbladder wall and pericholecystic fluid suggestive of cholecystitis, Common bile duct normal -lactated ringers this morning -Dr. Staton, plan on cholecystectomy Tuesday -daily LFTs -ceftriaxone 2g IV QD -NPO at midnight -pain control with IV morphine 1mg IV Q6, tylenol 650mg PO PRN Q6h -Zofran 4mg IV Q6 2. Hypertension: pressure mirna to 181/103 today -start hydralazine 10mg for BP > 150 -start home valsartan 40mg QD to control pressure 3. Prophylaxis: -Heparin 5000 SQ TID -GI prophylaxis with 40mg IV QD FEN LR @ 75cc/hr, decreased due to hypertension Replete electrolytes (mag, K) NPO at midnight for cholecystectomy tomorrow Disposition Plan for surgery tuesday, DC possibly 2 days after surgery Visit type - Emergency Visit Emergency Visit: No - New Patient This patient is new to me today: No - Critical Care Critical Care patient: No
[2017-03-29] MEDS ORDERED: PT OWN MED DRAWER 7, Y5N ONE (17:54)
--- NOTE | 2017-03-29 19:20 | PN ---
Teaching Attending Note Name of Resident: Darrel Ding ATTENDING PHYSICIAN STATEMENT I saw and evaluated the patient. I reviewed the resident's note and discussed the case with the resident. I agree with the resident's findings and plan as documented. SUBJECTIVE: Patient complaining of abdominal pain. OBJECTIVE: Vital Signs Period Temp Pulse Resp BP Sys/Rockwell Pulse Ox Last 24 Hr 97.5 F-98.7 F 68-86 19-20 120-192/79-103 98 HEART: S1S2, RRR LUNGS: Clear ABDOMEN: Obese, soft, diffuse tenderness, non-distended, normal BS Current Medications Generic Name Dose Route Start Last Admin Trade Name Freq PRN Reason Stop Dose Admin Acetaminophen 650 mg 03/26/17 19:15 03/29/17 10:57 Tylenol - PO 650 mg Q6H PRN Administration FEVER OR PAIN Heparin Sodium (Porcine) 5,000 unit 03/26/17 10:00 03/29/17 18:01 Heparin - SQ 5,000 unit Q8H-IV TANESHA Administration Hydralazine HCl 10 mg 03/28/17 09:56 03/29/17 05:03 Apresoline Injection - IVPUSH 10 mg Q6H PRN Administration GIVE WHEN SBP > 150 Ceftriaxone Sodium 2 gm/ 100 mls @ 200 mls/hr 03/29/17 01:30 03/29/17 18:00 Dextrose IVPB 200 mls/hr DAILY TANESHA Administration Lactated Ringer's 1,000 mls @ 75 mls/hr 03/29/17 07:32 03/29/17 10:59 Lactated Ringers Solution IV 75 mls/hr ASDIR TANESHA Administration Morphine Sulfate 1 mg 03/27/17 07:52 03/29/17 11:32 Morphine Sulfate IVPUSH 1 mg Q6H PRN Administration PAIN Ondansetron HCl 4 mg 03/26/17 09:42 03/29/17 06:45 Zofran Injection IVPUSH 4 mg Q6H PRN Administration NAUSEA Pantoprazole Sodium 40 mg 03/26/17 14:30 03/29/17 10:50 Protonix Iv IVPUSH 40 mg DAILY TANESHA Administration Valsartan 40 mg 03/29/17 12:45 03/29/17 13:09 Diovan - PO 40 mg DAILY TANESHA Administration ASSESSMENT AND PLAN: This is a 51 year old woman with a history of HTN, gastric bypass surgery who presented to the ER with abdominal pain. 1. Acute pancreatitis, likely secondary to gallstones - Resolved 2. Acute cholecystitis - Pain control - Zofran as needed for nausea - Plan for lap renita tomorrow 3. HTN - Diovan restarted 4. Morbid obesity, history of gastric bypass
[2017-03-30] MEDS: hydrALAZINE HCL 20 MG/ML VIAL IVPUSH PRN ×3 (06:19→21:35)
[2017-03-30] MEDS: ACETAMINOPHEN 325 MG TABLET (FP) PO PRN ×2 (06:20→22:12)
[2017-03-30 07:58] LABS: BASOPHIL 1.5 % (0-2.0); EOSINOPHIL 0.7 % (0-4.5); MCH 23.9 pg (25.7-33.7); MEAN CELL VOLUME 74.6 fl (80-96); MEAN PLT VOLUME 7.5 fl (7.5-11.1); PLATELET COUNT 269 K/MM3 (134-434); RDW 18.6 % (11.6-15.6); WHITE BLOOD COUNT 4.6 K/mm3 (4.0-10.0)
--- NOTE | 2017-03-30 08:32 | PN ---
Physical Exam: SUBJECTIVE: Patient seen and examined at bedside. Patient is still having nausea and headache. Given tylenol and morphine. Blood pressures mirna to 178/ 87. Denies chest pain, SOB, vomiting, abdominal pain. OBJECTIVE: Vital Signs Period Temp Pulse Resp BP Sys/Rockwell Pulse Ox Last 24 Hr 97.5 F-98.7 F 59-80 18-21 140-177/73-92 96-98 GENERAL: The patient is awake, alert, and fully oriented, in moderate distress LUNGS: Breath sounds equal, clear to auscultation bilaterally, no wheezes, no crackles, no accessory muscle use. HEART: Regular rate and rhythm, S1, S2 without murmur, rub or gallop. ABDOMEN: Soft, mild epigastric tenderness, nondistended, normoactive bowel sounds, no guarding, no rebound, no hepatosplenomegaly, no masses. NEUROLOGICAL: Cranial nerves II through XII grossly intact. Normal speech, gait not observed. Laboratory Results - last 24 hr 03/29/17 03/29/17 03/29/17 06:10 06:10 06:10 WBC 4.8 RBC 4.59 Hgb 11.0 D Hct 34.2 MCV 74.6 L MCH 23.9 L MCHC 32.1 RDW 18.5 H Plt Count 251 MPV 7.8 Neutrophils % 58.9 D Lymphocytes % 22.1 D Monocytes % 14.8 H Eosinophils % 2.6 D Basophils % 1.6 Sodium 140 Potassium 3.6 Chloride 105 Carbon Dioxide 24 Anion Gap 11 BUN 5 L D Creatinine 0.4 L D Creat Clearance w eGFR > 60 Random Glucose 119 H Calcium 8.1 L Phosphorus 2.2 L D Cancelled Magnesium 1.6 L Cancelled Total Bilirubin 1.1 H D AST 43 H D ALT 140 H Alkaline Phosphatase 203 H D Total Protein 6.1 L Albumin 2.8 L Beta HCG, Quant 03/29/17 03/30/17 16:42 07:00 WBC 4.6 RBC 4.58 Hgb 10.9 Hct 34.1 MCV 74.6 L MCH 23.9 L MCHC 32.0 RDW 18.6 H Plt Count 269 MPV 7.5 Neutrophils % 62.0 Lymphocytes % 22.4 Monocytes % 13.4 H Eosinophils % 0.7 Basophils % 1.5 Sodium Potassium Chloride Carbon Dioxide Anion Gap BUN Creatinine Creat Clearance w eGFR Random Glucose Calcium Phosphorus Magnesium Total Bilirubin AST ALT Alkaline Phosphatase Total Protein Albumin Beta HCG, Quant 2.2 Active Medications Generic Name Dose Route Start Last Admin Trade Name Freq PRN Reason Stop Dose Admin Acetaminophen 650 mg 03/26/17 19:15 03/30/17 06:20 Tylenol - PO 650 mg Q6H PRN Administration FEVER OR PAIN Heparin Sodium (Porcine) 5,000 unit 03/26/17 10:00 03/29/17 18:01 Heparin - SQ 5,000 unit Q8H-IV TANESHA Administration Hydralazine HCl 10 mg 03/28/17 09:56 03/30/17 06:19 Apresoline Injection - IVPUSH 10 mg Q6H PRN Administration GIVE WHEN SBP > 150 Ceftriaxone Sodium 2 gm/ 100 mls @ 200 mls/hr 03/29/17 01:30 03/29/17 18:00 Dextrose IVPB 200 mls/hr DAILY TANESHA Administration Lactated Ringer's 1,000 mls @ 75 mls/hr 03/29/17 07:32 03/29/17 22:29 Lactated Ringers Solution IV 75 mls/hr ASDIR TANESHA Administration Morphine Sulfate 1 mg 03/27/17 07:52 03/29/17 11:32 Morphine Sulfate IVPUSH 1 mg Q6H PRN Administration PAIN Ondansetron HCl 4 mg 03/26/17 09:42 03/29/17 22:23 Zofran Injection IVPUSH 4 mg Q6H PRN Administration NAUSEA Pantoprazole Sodium 40 mg 03/26/17 14:30 03/29/17 10:50 Protonix Iv IVPUSH 40 mg DAILY TANESHA Administration Valsartan 40 mg 03/29/17 12:45 03/29/17 13:09 Diovan - PO 40 mg DAILY TANESHA Administration ASSESSMENT/PLAN: 51 year old female with a pmh of hypertension and gastric bypass surgery is admitted to the hospital with acute abdominal pain likely due to cholecystitis. 1. Cholecystitis: MRCP revealed thickening of gallbladder wall and pericholecystic fluid suggestive of cholecystitis, Common bile duct normal -Lap renita this afternoon, Dr. Staton -lactated ringers -ceftriaxone 2g IV QD -pain control with IV morphine 1mg IV Q6, tylenol 650mg PO PRN Q6h -Zofran 4mg IV Q6 -diet per surgery recs 2. Acute Gallstone Pancreatitis: resolved 3. Hypertension: pressure was elevated today at 178/87, likely due to pain -hydralazine 10mg PRN for BP > 150 -continue valsartan 40mg QD 4. Prophylaxis: -Heparin 5000 SQ TID -GI prophylaxis with 40mg IV QD FEN LR @ 75cc/hr, decreased due to hypertension Replete electrolytes (mag, K) NPO at midnight for cholecystectomy tomorrow Disposition s/p lap renita dc planning per surgery reccs Visit type - Emergency Visit Emergency Visit: No - New Patient This patient is new to me today: No - Critical Care Critical Care patient: No
[2017-03-30 08:34] LABS: ALK PHOS 202 U/L (45-117); ANION GAP 11 (8-16); BILIRUBIN,TOTAL 0.8 mg/dL (0.2-1.0); CALCIUM 8.5 mg/dL (8.5-10.1); CO2 23 mmol/L (21-32); CREATININE 0.6 mg/dL (0.55-1.02); GLUCOSE,RANDOM 140 mg/dL (74-106); SGOT/AST 43 U/L (15-37); SGPT/ALT 110 U/L (12-78); TOT PROT 6.2 g/dl (6.4-8.2)
[2017-03-30] MEDS: morphine CARPU-JECT 8 MG/1 ML DISP.SYRIN IVPUSH PRN ×2 (09:44→18:22)
[2017-03-30] MEDS: PANTOPRAZOLE SODIUM 40 MG VIAL IVPUSH SCH (09:45)
[2017-03-30] MEDS: VALSARTAN 40 MG TABLET (FP) PO SCH (09:45)
[2017-03-30] MEDS: CEFTRIAXONE 2 GM in DEXTROSE 5%-WATER - 100 ML IVPB SCH (10:29)
--- NOTE | 2017-03-30 11:10 | PN ---
Teaching Attending Note Name of Resident: Darrel Ding ATTENDING PHYSICIAN STATEMENT I saw and evaluated the patient. I reviewed the resident's note and discussed the case with the resident. I agree with the resident's findings and plan as documented. SUBJECTIVE:c/o RUQ pain with only minimal relief assoc with nausea but no vomiting. unable to tolerate liquid diet due to pain. 1 BM yesterday negative for blood or melena. denies Cp, SOB, fever chills, OBJECTIVE: Last Vital Signs Temp Pulse Resp BP Pulse Ox 98.7 F 60 20 174/85 96 03/30/17 09:44 03/30/17 09:44 03/30/17 09:44 03/30/17 09:44 03/29/17 21:00 General mild distress due to pain CV S1 S2 RRR no murmur/rub/gallop LUngs CTA B/L no wheezing/rales/rhonchi Abdomen + diffuse abdominal tenderness greater in RUQ, normoactive BS ASSESSMENT AND PLAN: 51 yo F with PMH of HTN, gastric bypass surgery who presented to the ER with abdominal pain. 1. Acute gallstone pancreatitis- resolved. NPO for laprascopic cholecytectomy today. encouraged to request pain medications as only received once in 24H. on Ceftriaxone day 2. Surgery on board. 2. HTN- above goal. can likely be due to pain vs home medications were on hold. will re-start diovan. titrate to optimize. make sure pain is addressed. 3. Morbid obesity, history of gastric bypass 4. DVT ppx- hep sq
[2017-03-30] MEDS ORDERED: BUPIVACAINE HCL/PF 0.5% (5MG/ML) 10 ML VIAL ONE (12:41)
[2017-03-30] MEDS ORDERED: MIDAZOLAM HCL 2 MG/2 ML SINGLE DOSE VIAL ONE (14:00)
[2017-03-30] MEDS ORDERED: ROCURONIUM BROMIDE 50 MG/5 ML VIAL ONE (14:01)
[2017-03-30] MEDS ORDERED: PROPOFOL 20 ML ONE (14:02)
[2017-03-30] MEDS ORDERED: DEXAMETHASONE SOD PHOSPHATE 4 MG/1 ML VIAL ONE (14:38)
[2017-03-30] MEDS ORDERED: LIDOCAINE HCL/PF 2% SDV 5ML VIAL ONE (14:38)
[2017-03-30] MEDS ORDERED: DESFLURANE GAS 240 ML BOTTLE IH ONE (15:21)
[2017-03-30] MEDS ORDERED: NEOSTIGMINE METHYLSULFATE 0.5 MG/ML - 10 ML MDV ONE (15:34)
[2017-03-30] MEDS ORDERED: GLYCOPYRROLATE 0.2 MG/1 ML VIAL ONE (15:35)
[2017-03-30] MEDS ORDERED: BUPIVACAINE HCL/PF 0.5% (5MG/ML) 10 ML VIAL IJ ONE ×3 (15:41→15:44)
--- NOTE | 2017-03-30 16:03 | OP ---
Operative Note - Note: Operative Date: 03/30/17 Pre-Operative Diagnosis: Acute Cholecystitis Operation: laprascopic cholecystectomy Post-Operative Diagnosis: Same as Pre-op Surgeon: Shiva Staton Digital Account Director: Rhina Loco Anesthesiologist/PIANO REFINISHER: Jyoti Nieves MD Anesthesia: General Specimens Removed: Gallbladder Estimated Blood Loss (mls): 20 Fluid Volume Replaced (mls): 1,000 Operative Report Dictated: Yes
--- NOTE | 2017-03-30 16:10 | SURG ---
Surgery Estate Planning Director Note Estate Planning Director: Rhina Loco PA-C Date of Service: 03/30/17 Diagnosis: Cholecystitis Procedure: laprascopic cholecystectomy I was present for the entirety of the operative procedure. For further detail, please refer to operative report. Visit type - Case Type Case Type: ED Admission - Emergency Emergency Visit: Yes ED Registration Date: 03/26/17 Care time: The patient presented to the Emergency Department on the above date and was hospitalized for further evaluation of their emergent condition. - New patient This patient is new to me today: Yes Date on this admission: 03/30/17
[2017-03-30] MEDS ORDERED: ONDANSETRON 4 MG/2 ML VIAL ONE (16:37)
[2017-03-30] MEDS ORDERED: LACTATED RINGERS SOLUTION 1,000 ML IV SCH (16:47)
[2017-03-30] MEDS ORDERED: ONDANSETRON 4 MG/2 ML VIAL IVPUSH PRN (16:47)
[2017-03-30] MEDS: HEPARIN NA (PORCINE) 5,000 UNITS/ML 1ML VIAL SQ SCH (21:18)
[2017-03-30 23:42] LABS: URINE APPEARANCE SLCLOUDY; URINE BILIRUBIN NEGATIVE (NEGATIVE); URINE BLOOD NEGATIVE (NEGATIVE); URINE COLOR DKYELLOW; URINE GLUCOSE (UA) NEGATIVE (NEGATIVE); URINE KETONE 2+ (NEGATIVE); URINE NITRITE NEGATIVE (NEGATIVE); URINE UROBILINOGEN NEGATIVE mg/dL (0.2-1.0)
[2017-03-30 23:47] LABS: URINE MUCUS RARE; URINE PROTEIN 1+ (NEGATIVE); URINE RBC 2 /hpf (0-3); URINE WBC 3 /hpf (3-5)
[2017-03-31] MEDS: HEPARIN NA (PORCINE) 5,000 UNITS/ML 1ML VIAL SQ SCH ×2 (05:57→13:57)
[2017-03-31] MEDS: morphine CARPU-JECT 8 MG/1 ML DISP.SYRIN IVPUSH PRN (06:54)
[2017-03-31] MEDS: hydrALAZINE HCL 20 MG/ML VIAL IVPUSH PRN (06:55)
--- NOTE | 2017-03-31 08:31 | PN ---
Progress Note, Physician Chief Complaint: Abdominal pain continuing to improve-appropriate to status History of Present Illness: POD #1 Laprascopic Cholecystectomy seen and examined at the bedside with no new complaints. Patient states she has come nasal congestion but denies any CP, SOB , N/V/D or worsening abdominal pain. She is tolerating a regular diet, ambulating, voiding spontaneously and passing gas. No BM yet. - Current Medication List Current Medications: Active Medications Acetaminophen (Tylenol -) 650 mg PO Q6H PRN PRN Reason: FEVER OR PAIN Last Admin: 03/30/17 22:12 Dose: 650 mg Heparin Sodium (Porcine) (Heparin -) 5,000 unit SQ TID [facility] Last Admin: 03/31/17 05:57 Dose: 5,000 unit Hydralazine HCl (Apresoline Injection -) 10 mg IVPUSH Q6H PRN PRN Reason: GIVE WHEN SBP > 150 Last Admin: 03/31/17 06:55 Dose: 10 mg Lactated Ringer's (Lactated Ringers Solution) 1,000 mls @ 75 mls/hr IV ASDIR [facility] Last Admin: 03/31/17 05:57 Dose: 75 mls/hr Morphine Sulfate (Morphine Sulfate) 1 mg IVPUSH Q6H PRN PRN Reason: PAIN Last Admin: 03/31/17 06:54 Dose: 1 mg Ondansetron HCl (Zofran Injection) 4 mg IVPUSH Q6H PRN PRN Reason: NAUSEA Last Admin: 03/30/17 16:40 Dose: 4 mg Pantoprazole Sodium (Protonix Iv) 40 mg IVPUSH DAILY [facility] Valsartan (Diovan -) 40 mg PO DAILY [facility] - Objective Vital Signs: Vital Signs Temperature 98.3 F 03/31/17 07:00 Pulse Rate 84 03/31/17 06:57 Respiratory Rate 18 03/31/17 07:00 Blood Pressure 155/85 03/31/17 06:57 O2 Sat by Pulse Oximetry (%) 99 03/30/17 21:00 Constitutional: Yes: No Distress, Calm Eyes: Yes: Conjunctiva Clear HENT: Yes: Atraumatic, Normocephalic Respiratory: Yes: Regular (On RA) Gastrointestinal: Yes: Soft (Incisions C/D/I with no evidence of d/c- bandaids and steris intact. surrounding skin intact with no evidence of tracking erythema. No evidence of collection or hematoma around incision sites. mild TTP at port sites appropriate to status), Abdomen, Obese Extremities: No: Calf Tenderness Peripheral Pulses: Left Doralis Pedis: 2+, Right Dorsalis Pedis: 2+ Wound/Incision: Yes: Clean/Dry, Steri Strips Psychiatric: Yes: Alert, Oriented Labs: INR, PTT INR 1.23 (0.82-1.09) H 03/28/17 07:45 - ....Imaging Chest X-ray: Pending
[2017-03-31 08:32] LABS: BASOPHIL 0.4 % (0-2.0); EOSINOPHIL 0.1 % (0-4.5); MCH 23.8 pg (25.7-33.7); MEAN CELL VOLUME 74.5 fl (80-96); MEAN PLT VOLUME 7.7 fl (7.5-11.1); NEUTROPHILS 74.6 % (42.8-82.8); PLATELET COUNT 262 K/MM3 (134-434); RDW 18.9 % (11.6-15.6); WHITE BLOOD COUNT 9.2 K/mm3 (4.0-10.0)
--- NOTE | 2017-03-31 09:08 | PN ---
Progress Note (short form) - Note Progress Note: ANESTHESIA POSTOP: 51 yo patient, POD#1, doing well after lap renita under GETA. Pain adequately controlled. Tolerating PO. Ambulating. Encouraged use of IS.
[2017-03-31 09:10] LABS: ALBUMIN 2.6 g/dl (3.4-5.0); ANION GAP 8 (8-16); CALCIUM 8.1 mg/dL (8.5-10.1); CO2 27 mmol/L (21-32); CREATININE 0.6 mg/dL (0.55-1.02); GLUCOSE,RANDOM 122 mg/dL (74-106); MAGNESIUM 1.8 mg/dL (1.8-2.4); PHOSPHOROUS 3.5 mg/dL (2.5-4.9); SGOT/AST 42 U/L (15-37); SGPT/ALT 86 U/L (12-78)
[2017-03-31 09:12] LABS: ALK PHOS 169 U/L (45-117); BILIRUBIN,TOTAL 1.2 mg/dL (0.2-1.0); TOT PROT 5.6 g/dl (6.4-8.2)
[2017-03-31] MEDS ORDERED: PANTOPRAZOLE SODIUM 40 MG VIAL IVPUSH SCH (10:00)
[2017-03-31] MEDS ORDERED: VALSARTAN 40 MG TABLET (FP) PO SCH (10:00)
[2017-03-31 11:22] LABS: URINE LEUK ESTERASE Negative (NEGATIVE)
--- NOTE | 2017-03-31 13:53 | PN ---
Teaching Attending Note Name of Resident: Darrel Ding ATTENDING PHYSICIAN STATEMENT I saw and evaluated the patient. I reviewed the resident's note and discussed the case with the resident. I agree with the resident's findings and plan as documented. SUBJECTIVE:states pain is controlled. tolerating diet. denies CP, SOB, fever, chills, denies cough, dysuria or diarrhea OBJECTIVE: Last Vital Signs Temp Pulse Resp BP Pulse Ox 98.4 F 81 18 138/71 99 03/31/17 09:27 03/31/17 09:27 03/31/17 09:27 03/31/17 09:27 03/30/17 21:00 General NAD CV S1 S2 RRR no murmur/rub/gallop LUngs CTA B/L no wheezing/rales/rhonchi Abdomen mild diffuse tenderness, surgical incisions with bandages applied dry and intact. slightly distended, normoactive BS ASSESSMENT AND PLAN: 51 yo F with PMH of HTN, gastric bypass surgery who presented to the ER with abdominal pain. 1. Acute gallstone pancreatitis-s/p laprascopic cholecystectomy. no complications. abx d/c. tolerating diet. Surgery on board. will need outpatient surgery follow up 2. Fever- Tm 100.8. no associated symptoms. CXR negative UA negative. likely due to surgery. no indication for abx at this time 3. HTN- above goal. states pain is controlled. re-started on home medication yesterday. will start norvasc 5mg. 4. Morbid obesity, history of gastric bypass 5. DVT ppx- hep sq 6. d/c home off abx. will need surgery outpatient follow up
[2017-03-31] MEDS ORDERED: amLODIPine BESYLATE 5 MG TABLET (FP) PO SCH (14:00)
[2017-03-31] MEDS: ACETAMINOPHEN 325 MG TABLET (FP) PO PRN (14:02)
[2017-03-31 15:06] VITALS: BP 159/96; PULSE 80; TEMP 98.8
--- NOTE | 2017-03-31 15:50 | DS ---
Physical Exam: SUBJECTIVE: Patient seen and examined. Patient is s/p lap renita. She states she has some pain near the surgical scars but otherwise asymptomatic. No headaches, chest pain, nausea, vomiting. OBJECTIVE: Vital Signs Period Temp Pulse Resp BP Sys/Rockwell Pulse Ox Last 24 Hr 97.5 F-100.8 F 78-87 14-20 133-166/57-96 96-100 PHYSICAL EXAM GENERAL: The patient is awake, alert, and fully oriented, in moderate distress LUNGS: Breath sounds equal, clear to auscultation bilaterally, no wheezes, no crackles, no accessory muscle use. HEART: Regular rate and rhythm, S1, S2 without murmur, rub or gallop. ABDOMEN: Soft, non-tender to palpation, nondistended, normoactive bowel sounds, no guarding, no rebound, no hepatosplenomegaly, no masses. Surgical scars noted from the laparotomy. NEUROLOGICAL: Cranial nerves II through XII grossly intact. Normal speech, gait not observed. LABS Laboratory Results - last 24 hr 03/30/17 03/31/17 03/31/17 23:30 07:15 07:15 WBC 9.2 D RBC 4.12 Hgb 9.8 L D Hct 30.7 L MCV 74.5 L MCH 23.8 L MCHC 32.0 RDW 18.9 H Plt Count 262 MPV 7.7 Neutrophils % 74.6 D Lymphocytes % 11.5 D Monocytes % 13.4 H Eosinophils % 0.1 D Basophils % 0.4 Sodium 141 Potassium 4.0 Chloride 106 Carbon Dioxide 27 Anion Gap 8 BUN 11 D Creatinine 0.6 Creat Clearance w eGFR > 60 Random Glucose 122 H Calcium 8.1 L Phosphorus 3.5 D Magnesium 1.8 Total Bilirubin 1.2 H D AST 42 H ALT 86 H D Alkaline Phosphatase 169 H Total Protein 5.6 L Albumin 2.6 L Urine Color Dkyellow Urine Appearance Slcloudy Urine pH 5.0 Ur Specific [place] 1.020 Urine Protein 1+ H Urine Glucose (UA) Negative Urine Ketones 2+ H Urine Blood Negative Urine Nitrite Negative Urine Bilirubin Negative Urine Urobilinogen Negative Ur Leukocyte Esterase Negative Urine RBC 2 Urine WBC 3 Ur Epithelial Cells Moderate Urine Mucus Rare HOSPITAL COURSE: Date of Admission:03/26/17 51 year old female with a history of HTN and gastric bypass surgery presented to the hospital with acute abdominal pain. Patient was diagnosed with acute pancreatitis due to an elevated lipase level, fever, leukocytosis, elevated LFTs , and abdominal pain. Patient was treated conservatively with lactated ringers and nothing by mouth for acute pancreatitis. Patient received an abdominal CT and ultrasound, which did not reveal a cause of her condition. Patient then underwent an MRCP procedure, which elucidated a picture of acute cholecystitis. Dr. Staton was consulted and a laparoscopic cholecystectomy was planned. Before the procedure, patient had episodes of headache in addition to continuous abdominal pain, treated with IV morphine and tylenol. Patient was found to be hypertensive on multiple occasions, treated with losartan and hydralazine. Patient had an uncomplicated cholecystectomy in the hospital on 03/30/17. After the surgery, patient tolerated solid foods, her pain had resolved, and her hypertension was further treated with amlodipine. Patient was discharged on 03/31/17 with subsequent recommendations to follow up with Dr. Staton, her primary care physician, and given prescriptions for tylenol for pain and amlodipine for blood pressure (in addition to continuing her valsartan). Date of Discharge: 03/31/17 Minutes to complete discharge: 45 Discharge Summary Reason For Visit: PANCREATITIS Current Active Problems DVT prophylaxis (Acute) HTN (hypertension) (Acute) Pancreatitis (Acute) SIRS (systemic inflammatory response syndrome) (Acute) Condition: Stable - Instructions Diet, Activity, Other Instructions: Dr. Staton Discharge Instructions Dear RAMESH MCCALL, Post Operative Instructions Physical activity Resume your normal everyday activity as tolerated no heavy lifting or exercise until seen by your surgeon. You may walk unlimited amounts of and climb stairs. You may resume driving the car when you feel safe and comfortable behind the wheel. Wound care If you have a bandage, leave it on, and keep dry for 48 - 72 hours. After that time discard the outer bandage. If there are tapes on the skin under the outer bandage, leave them in place. They will peel off in the next 7 to 10 days. Do Not peel them off. You may shower 2 days after surgery. If there are tapes present on the skin, they can get wet. Diet There are no dietary restrictions. Eat healthy, high-fiber foods. Drink 6 to 8 glasses of liquid each day. This will assist in keeping your bowels are regular. Pain management You may take Tylenol or acetaminophen or Ibuprofen (for example, Motrin, Advil etc.) Any pain prescription medication ordered should be taken as prescribed for moderate to severe pain. Call Dr. Staton for any of the following: Severe pain not relieved by medication Fever of 101 or higher Excessive bleeding or drainage on dressing Inability to urinate Call Dr. Staton at the office at [phone] for a post-operative appointment in 7 - 10 days. For Blood Pressure: Take your home Valsartan 40mg once a day Take amlodipine 5mg once a day Follow up with your primary care physician for control of blood pressure in 2-3 days If you don't have a primary care physician, please make an appointment at: [facility] [address] [place] [address], Floor [address] [place] [address] Referrals: Shiva Staton MD [Staff Physician] - STAFF,NOT ON [Primary Care Provider] - Disposition: HOME - Home Medications Comprehensive Discharge Medication List: Ambulatory Orders Valsartan 40 mg PO DAILY 03/26/17 Acetaminophen [Tylenol .Regular Strength -] 650 mg PO Q6H PRN #20 tablet Amlodipine Besylate [Norvasc -] 5 mg PO DAILY #14 tablet 03/31/17 This patient is new to me today: No Emergency Visit: No Critical Care patient: No - Discharge Referral Referred to [facility] Med P.C.: No
--- NOTE | 2017-04-01 17:53 | PATH ---
Surgical Pathology Report Patient Name: RAMESH MCCALL [facility]. Rec. #: [id number] /Age/Gender: 1965 (Age: 51) / F Account: [id number] Location: [address] [place] [address] Taken: 03/30/2017 Received: 03/31/2017 Reported: 04/01/2017 Physicians: Shiva Staton MD Specimen(s) Received GALLBLADDER Clinical History Pancreatitis Final Diagnosis GALLBLADDER, LAPAROSCOPIC CHOLECYSTECTOMY: ACUTE AND CHRONIC CHOLECYSTITIS AND CHOLELITHIASIS. Electronically Signed Shira Pringle M.D. Gross Description Received in formalin, labeled "gallbladder," is a 6.0 x 2.4 x 2.2 cm. gallbladder with a 0.2 cm. in length portion of cystic duct attached. The outer surface is hahn-keller and varies from smooth to shaggy. The lumen contains green, tenacious bile as well as multiple black, irregular to fragmented choleliths ranging from 0.1-0.3 cm in greatest dimension. The mucosa is green and velvety. The wall of the gallbladder averages 0.2 cm. in thickness. [employer] sections are submitted in one cassette. 03/31/201703/31/2017
--- NOTE | 2017-04-04 21:49 | OP ---
DATE OF OPERATION: 03/30/2017 PREOPERATIVE DIAGNOSIS: Acute cholecystitis. POSTOPERATIVE DIAGNOSIS: Acute cholecystitis. PROCEDURE: Laparoscopic cholecystectomy. SURGEON: Shiva Staton MD SECURITY PROJECT MANAGER: Rhina Loco PA-C SECURITY PROJECT MANAGER: Laurita Lantigua PA-C ANESTHESIA: General. OPERATIVE FINDINGS: There was acute cholecystitis and evidence of previous abdominal surgery in the form of a Babar-en-Y gastric bypass. The rest of the findings were unremarkable. DESCRIPTION OF PROCEDURE: The patient was placed on the operating table in the supine position, and after the induction of general anesthesia, the patient's abdomen was prepped with ChloraPrep and draped in sterile fashion. A timeout was taken, and pneumoperitoneum was established above the umbilicus using a Gentry needle to an intraabdominal pressure of 15 mmHg. A 5-mm port was placed at the umbilicus, and laparoscopy carried out, and the previously noted findings were observed. A subxiphoid 12-mm port and additional 5-mm lateral ports were placed, and the gallbladder was placed on cephalad and lateral traction and dissection begun in the hepatocystic triangle. The peritoneum opened. The neck of the gallbladder was opened using electrocautery and the cystic duct identified, coursing from the neck of the gallbladder towards the common bile duct. It was dissected proximally and distally for length as was the cystic artery. Both structures were clipped proximally and distally twice with large hemoclips and then serially divided using the EndoShears after a critical view of safety was taken. The gallbladder was then removed in a retrograde fashion from the liver bed using the electrocautery. Prior to removal from the edge of the liver, hemostasis was checked for and noted to be good and then the gallbladder removed from the edge of the liver and placed in an Endo Catch and brought out through the subxiphoid port. Pneumoperitoneum was re-established, hemostasis was verified, and then, all ports were removed under laparoscopic vision without evidence of bleeding from the port sites. The port sites were infiltrated with 0.50% Marcaine and the skin edges closed with 4-0 Monocryl in a subcuticular continuous fashion. Steri-Strips and Band-Aid dressings were placed and the procedure terminated at this point and the patient aroused from general anesthesia and transferred to the postanesthesia care unit in stable condition, awake and alert. ESTIMATED BLOOD LOSS: 15 mL REPLACEMENTS: Crystalloid. DRAINS: None. SPECIMEN: Gallbladder and contents to Pathology. I, Shiva Staton, was physically present in the operating room from the time the patient was placed on the operating table until she was transferred to the postanesthesia care unit in my accompaniment. MD JOVANNI Ragland/[id number]
== END 2017-03-31 19:11 | disposition home or self-care (01) | DRG 263 ==
LOC: JER 03:11 → JERBED 10:14 → J6S 11:53
PROVIDERS: ADMIT Hospitalist; ATTEND Internal Medicine
PROC: BF37YZZ Magnetic Resonance Imaging (MRI) of Pancreas using Other Contrast (ICD-10-PCS; 2017-03-30)
PROC: 0FT44ZZ Resection of Gallbladder, Percutaneous Endoscopic Approach (ICD-10-PCS; principal; 2017-03-30 13:30)
DX: K85.10 Biliary acute pancreatitis without necrosis or infection (principal); R65.10 Systemic inflammatory response syndrome (SIRS) of non-infectious origin without acute organ dysfunction; K81.0 Acute cholecystitis; I10 Essential (primary) hypertension; Z98.84 Bariatric surgery status; E66.9 Obesity, unspecified; Z68.30 Body mass index [BMI] 30.0-30.9, adult; F17.210 Nicotine dependence, cigarettes, uncomplicated; R09.81 Nasal congestion
CPT/HCPCS: 36415; 71010-TC; 71250-TC; 74176-TC; 74181-TC; 76705-TC; 80053; 80307; 81003; 81015; 82550; 82977; 83690; 83735; 84100; 84478; 84484; 84702; 85025; 85610; 86850; 86900; 86901; 87040; 87086; 87186; 88304-TC; 90688; 94760; 97116-GP; 97161-GP; 99282-25; G0008; J1644

== ENCOUNTER 2020-12-18 15:21 | Emergency (ER) | payer OTHER ==
[2020-12-18 15:53] VITALS: TEMP 97.9; BMI 26.4
[2020-12-18] MEDS ORDERED: ACETAMINOPHEN 1000 MG/100 ML VIAL (NON FORMULARY) IVPB ONE (16:36)
[2020-12-18] MEDS ORDERED: METOCLOPRAMIDE HCL INJECTION 10 MG/2 ML VIAL IVPUSH ONE (16:46)
[2020-12-18] MEDS ORDERED: METOCLOPRAMIDE HCL INJECTION 10 MG/2 ML VIAL ONE (17:22)
[2020-12-18] MEDS ORDERED: ACETAMINOPHEN INJECTION 100 ML IVPB ONE (17:23)
[2020-12-18 18:25] LABS: BASO % 1.1 % (0-2.0); EOS % 1.3 % (0-4.5); HEMATOCRIT 38.3 % (32.4-45.2); HEMOGLOBIN 12.4 GM/dL (10.7-15.3); LYMPH % 27.1 % (8-40); MCH 25.9 pg (25.7-33.7); MCHC 32.3 g/dl (32.0-36.0); MEAN CELL VOLUME 80.3 fl (80-96); MEAN PLT VOLUME 6.9 fl (7.5-11.1); NEUT % 60.5 % (42.8-82.8); PLATELET COUNT 365 10^3/uL (134-434); RBC 4.77 M/mm3 (3.60-5.2); RDW 16.6 % (11.6-15.6); WHITE BLOOD COUNT 6.4 K/mm3 (4.0-10.0)
[2020-12-18 18:41] LABS: CHLORIDE 110 mmol/L (98-107); SODIUM 143 mmol/L (136-145)
[2020-12-18 18:43] LABS: CALCIUM 8.8 mg/dL (8.5-10.1)
[2020-12-18 18:44] LABS: ALBUMIN 3.5 g/dl (3.4-5.0); ANION GAP 6 MMOL/L (8-16); BLOOD UREA NITROGEN 15.9 mg/dL (7-18); CO2 27 mmol/L (21-32); GLUCOSE,RANDOM 91 mg/dL (74-106)
[2020-12-18 18:47] LABS: CREATININE 0.9 mg/dL (0.55-1.3); SGOT/AST 17 U/L (15-37); SGPT/ALT 18 U/L (13-61)
[2020-12-18 18:49] LABS: BILIRUBIN,TOTAL 0.6 mg/dL (0.2-1); TOT PROT 6.9 g/dl (6.4-8.2)
[2020-12-18 18:51] LABS: ALK PHOS 70 U/L (45-117)
[2020-12-18] MEDS ORDERED: LOSARTAN POTASSIUM 25 MG TABLET PO ONE (20:53)
[2020-12-18] MEDS ORDERED: LOSARTAN POTASSIUM 50 MG TABLET PO ONE (21:01)
[2020-12-18] MEDS ORDERED: LOSARTAN POTASSIUM 50 MG TABLET ONE (21:05)
[2020-12-18 22:19] VITALS: BP 187/87; PULSE 63
== END 2020-12-18 22:19 | disposition home or self-care (01) ==
LOC: JER 15:21
PROC: 3E033NZ Introduction of Analgesics, Hypnotics, Sedatives into Peripheral Vein, Percutaneous Approach (ICD-10-PCS; principal; 2020-12-18)
PROC: 3E033GC Introduction of Other Therapeutic Substance into Peripheral Vein, Percutaneous Approach (ICD-10-PCS; 2020-12-18)
DX: R51.9 Headache, unspecified (principal); I10 Essential (primary) hypertension
CPT/HCPCS: 36415; 70450-TC; 71045-TC-FY; 80053; 82550; 84484; 85025; 93005; 93010; 99285-25; J0131